=== PATIENT | female | born 1970 | race Caucasian/White ===

== ENCOUNTER → 2017-02-11 | Outpatient (REF) | payer OTHER | LOC: M LAB REF 19:08 | PROVIDERS: ATTEND Physician Assistant Medical | DX: J10.1 Influenza due to other identified influenza virus with other respiratory manifestations (principal) ==

== ENCOUNTER → 2017-11-12 | Outpatient (CLI) | payer OTHER | LOC: M RAD 08:00 | DX: R11.0 Nausea (principal) ==

== ENCOUNTER → 2022-05-06 | Outpatient (CLI) | payer OTHER ==
[~2022-05-06] MED LIST: GASTROGRAFIN SOLUTION 30ML (Q9963) As Ordered ONE; ISOVUE-370 76% 100ML VIAL As Ordered ONE
== END ==
LOC: M RAD 15:38
PROVIDERS: ATTEND Nurse Practitioner Adult Health
DX: D48.1 Neoplasm of uncertain behavior of connective and other soft tissue (principal)
CPT/HCPCS: 74177; Q9963; Q9967

== ENCOUNTER → 2022-08-04 | Outpatient (CLI) | payer OTHER ==
[~2022-08-04] MED LIST changes: +B-12100010 PO; +ESTR1TAB PO; +FARX1TAB3 PO; -GASTROGRAFIN SOLUTION 30ML (Q9963) As Ordered ONE; -ISOVUE-370 76% 100ML VIAL As Ordered ONE; +MAGN250T7 PO; +METF-817 PO; +OZEM2INJ; +PANT40TA29 PO; +SUMA100T2; +VITA100093 PO
== END ==
LOC: M EKG 17:06
PROVIDERS: ATTEND Anesthesiology
DX: Z01.818 Encounter for other preprocedural examination (principal)

== ENCOUNTER → 2022-08-09 | Outpatient (CLI) | payer OTHER | LOC: M LABSMTC 10:50 | PROVIDERS: ATTEND Anesthesiology | DX: Z20.828 Contact with and (suspected) exposure to other viral communicable diseases (principal); Z11.59 Encounter for screening for other viral diseases ==

== ENCOUNTER 2022-08-10 11:30 | Day surgery (SDC) | payer OTHER ==
[~2022-08-10] VITALS: Ht 167.6 cm; Wt 105.0 kg
[2022-08-10] MEDS ORDERED: LIDOCAINE 2% 100MG/5ML SDV (FOR ANES.) As Ordered ONE (11:39)
[2022-08-10] MEDS ORDERED: propofoL 200 MG/20 ML VIAL As Ordered ONE (11:39)
[2022-08-10] MEDS ORDERED: MIDAZOLAM INJ 2MG/2ML VIAL (J2250 PER 1MG) As Ordered ONE (11:39)
[2022-08-10] MEDS ORDERED: fentaNYL 100 MCG/2 ML INJECTION As Ordered ONE (11:40)
[2022-08-10] MEDS ORDERED: LR 1,000 ML IV SCH (12:10)
[2022-08-10] MEDS ORDERED: LIDOCAINE W/EPINEPHRINE 1% 20ML VIAL As Ordered ONE (13:09)
[2022-08-10] MEDS ORDERED: ONDANSETRON 4MG 2ML VIAL As Ordered ONE (13:41)
[2022-08-10] MEDS ORDERED: KETOROLAC 60MG 2ML VIAL As Ordered ONE (13:41)
[2022-08-10 14:15] VITALS: BP 127/71
== END 2022-08-10 14:17 | disposition home or self-care (01) ==
LOC: M SDC 11:30
PROVIDERS: ATTEND Surgery
DX: D17.1 Benign lipomatous neoplasm of skin and subcutaneous tissue of trunk (principal); E11.9 Type 2 diabetes mellitus without complications; K21.9 Gastro-esophageal reflux disease without esophagitis; G43.909 Migraine, unspecified, not intractable, without status migrainosus; E66.9 Obesity, unspecified; Z79.84 Long term (current) use of oral hypoglycemic drugs; Z79.899 Other long term (current) drug therapy
CPT/HCPCS: 11406; 88304; J1885; J2250; J2405; J3010